=== PATIENT | female | born 1950 | race Caucasian/White ===

== ENCOUNTER 2021-06-15 13:24 | Emergency (ER) | payer MEDICARE ==
[~2021-06-15] VITALS: Ht 160 cm; Wt 63.5 kg
[2021-06-15 14:16] LABS: RED BLOOD COUNT 4.44 M/UL (4.00-5.10); WHITE BLOOD COUNT 8.3 K/UL (4.5-11.0)
[2021-06-15 14:43] LABS: BUN/CREATININE RATIO 14 (0-10)
[2021-06-15] MEDS ORDERED: ONDANSETRON ODT4 MG SL (18:21)
== END 2021-06-15 20:31 | disposition home or self-care (01) ==
LOC: ER1 13:24
PROVIDERS: Physician Assistant
DX: U07.1 COVID-19 (principal); J12.82 Pneumonia due to coronavirus disease 2019; E86.0 Dehydration; E78.5 Hyperlipidemia, unspecified; I10 Essential (primary) hypertension; I25.10 Atherosclerotic heart disease of native coronary artery without angina pectoris; Z90.710 Acquired absence of both cervix and uterus; Z23 Encounter for immunization
CPT/HCPCS: 71045; 80053; 81001; 82550; 82553; 83874; 84484; 85025; 93005; 96374; 96376; 99285; J2405; M0245